=== PATIENT | male | born 1995 | race African-American/Black ===

== ENCOUNTER 2022-08-31 12:18 | Emergency (ER) | payer MEDICAID, OTHER ==
[~2022-08-31] VITALS: Ht 167.6 cm; Wt 56.0 kg
[2022-08-31 15:06] VITALS: BP 129/77
== END 2022-08-31 16:12 | disposition home or self-care (01) ==
LOC: ER 12:18
DX: S39.012A Strain of muscle, fascia and tendon of lower back, initial encounter (principal); X58.XXXA Exposure to other specified factors, initial encounter; Y93.89 Activity, other specified; Y92.89 Other specified places as the place of occurrence of the external cause; Y99.8 Other external cause status
CPT/HCPCS: 72100